=== PATIENT | male | born 1960 | race African-American/Black ===

== ENCOUNTER 2019-03-10 09:38 | Emergency (ER) | payer BC ==
[2019-03-10] MEDS ORDERED: Ondansetron 4 MG/2 ML SDV IVPUSH ONE (09:58)
[2019-03-10] MEDS ORDERED: Sodium Chloride 0.9% 10 ML Syringe FLUSH PRN (09:58)
[2019-03-10] MEDS ORDERED: Sodium Chloride 0.9% 1,000 ML IV SCH (10:00)
--- NOTE | 2019-03-10 10:45 | EDM.PDOC ---
ED HPI GENERAL MEDICAL PROBLEM - General Chief Complaint: General Stated Complaint: [facility] Time Seen by Provider: 03/10/19 09:46 Source of Information: Reports: Patient, EMS History Limitations: Reports: No Limitations - History of Present Illness INITIAL COMMENTS - FREE TEXT/NARRATIVE: The patient presents by [facility] for dizziness. He went to be feeling fine last night. This morning he got up and he was dizzy like the room was spinning and he was off balance. He called EMS for help. He is also nauseated but he did not vomit. He has no fever, chills, cough, congestion, ear pain, tinnitus, hearing loss, chest pain, shortness of breath, abdominal pain, numbness or weakness. This has never happened before. Onset: Gradual Duration: Hour(s): Severity: Moderate Improves with: Reports: Immobilization Worsens with: Reports: Movement Context: Denies: Trauma Associated Symptoms: Reports: Nausea/Vomiting. Denies: Chest Pain, Cough, Fever /Chills, Headaches, Shortness of Breath - Related Data Allergies Allergy/AdvReac Type Severity Reaction Status Date / Time No Known Allergies Allergy Verified 03/10/19 09:43 Home Meds: Home Meds Dapagliflozin/Metformin HCl [Xigduo Xr 5 mg-1,000 mg Tablet] 1 tab PO DAILY [History] Losartan [Cozaar] 25 mg PO DAILY 03/10/19 [History] Meclizine [Antivert] 25 mg PO Q6H PRN #30 tab.chew 03/10/19 [Rx] Rosuvastatin [Crestor] 20 mg PO DAILY 03/10/19 [History] Tamsulosin [Flomax] 1 tab PO DAILY 03/10/19 [History] Past Medical History Cardiovascular History: Reports: High Cholesterol, Hypertension Genitourinary History: Reports: Prostate Disorder Endocrine/Metabolic History: Reports: Diabetes, Type II - Past Surgical History HEENT Surgical History: Reports: Naso-Sinus Surgery Social & Family History - Tobacco Use Smoking Status *Q: Never Smoker - Caffeine Use Caffeine Use: Reports: None - Recreational Drug Use Recreational Drug Use: No ED ROS GENERAL - Review of Systems Review Of Systems: See Below Constitutional: Reports: No Symptoms HEENT: Reports: No Symptoms Respiratory: Reports: No Symptoms Cardiovascular: Reports: No Symptoms Endocrine: Reports: No Symptoms GI/Abdominal: Reports: Nausea. Denies: Abdominal Pain, Vomiting : Reports: No Symptoms Musculoskeletal: Reports: No Symptoms ED EXAM, GENERAL - Physical Exam Exam: See Below Exam Limited By: No Limitations General Appearance: Alert, No Apparent Distress Eye Exam: Right Eye: Nystagmus, Bilateral Eye: EOMI, PERRL Ears: Normal External Exam Nose: Normal Inspection Head: Atraumatic, Normocephalic Neck: Normal Inspection Respiratory/Chest: No Respiratory Distress, Lungs Clear, Normal Breath Sounds Cardiovascular: Regular Rate, Rhythm, No Edema, No Murmur GI/Abdominal: Soft, Non-Tender, No Organomegaly, No Mass Back Exam: Normal Inspection Extremities: Normal Inspection Neurological: Alert, Oriented, No Motor/Sensory Deficits, Other (Normal finger to nose) Course - Vital Signs Last Recorded V/S: Last Vital Signs Temp 98.2 F 03/10/19 09:46 Pulse 67 03/10/19 09:46 Resp 13 03/10/19 09:46 BP 123/83 03/10/19 09:46 Pulse Ox 100 03/10/19 09:46 - Orders/Labs/Meds Orders: Active Orders 24 hr Category Date Time Status Cardiac Monitoring [RC] . DIRECTED Care 03/10/19 09:58 Active Peripheral IV Care [RC] . DIRECTED Care 03/10/19 09:59 Active Sodium Chloride 0.9% [Normal Saline] 1,000 ml Med 03/10/19 10:00 Active IV .BOLUS Sodium Chloride 0.9% [Saline Flush] Med 03/10/19 09:58 Active 10 ml FLUSH ASDIRECTED PRN ED Antiemetic Medication Reflex [OM.PC] Stat Oth 03/10/19 09:58 Ordered Peripheral IV Insertion Adult [OM.PC] Stat Oth 03/10/19 09:58 Ordered Medication Orders Sodium Chloride (Normal Saline) 1,000 mls @ 1,000 mls/hr IV .BOLUS PATTIE Last Admin: 03/10/19 10:09 Dose: 1,000 mls/hr Sodium Chloride (Saline Flush) 10 ml FLUSH ASDIRECTED PRN PRN Reason: Keep Vein Open Last Admin: 03/10/19 10:09 Dose: 10 ml Labs: Laboratory Tests 03/10/19 03/10/19 Range/Units 10:05 10:05 WBC 4.23 (4.23-9.07) K/mm3 RBC 5.34 (4.63-6.08) M/mm3 Hgb 14.8 (13.7-17.5) gm/dl Hct 43.2 (40.1-51.0) % MCV 80.9 (79.0-92.2) fl MCH 27.7 (25.7-32.2) pg MCHC 34.3 (32.2-35.5) g/dl RDW Std Deviation 37.0 (35.1-43.9) fL Plt Count 243 (163-337) K/mm3 MPV 9.0 L (9.4-12.3) fl Neut % (Auto) 60.3 (34.0-67.9) % Lymph % (Auto) 30.0 (21.8-53.1) % Sunflower % (Auto) 8.3 (5.3-12.2) % Eos % (Auto) 0.9 (0.8-7.0) Baso % (Auto) 0.5 (0.1-1.2) % Neut # (Auto) 2.55 (1.78-5.38) K/mm3 Lymph # (Auto) 1.27 L (1.32-3.57) K/mm3 Sunflower # (Auto) 0.35 (0.30-0.82) K/mm3 Eos # (Auto) 0.04 (0.04-0.54) K/mm3 Baso # (Auto) 0.02 (0.01-0.08) K/mm3 Sodium 141 (136-145) mEq/L Potassium 4.0 (3.5-5.1) mEq/L Chloride 106 (98-107) mEq/L Carbon Dioxide 23 (21-32) mEq/L Anion Gap 16.0 H (5-15) BUN 15 (7-18) mg/dL Creatinine 1.2 (0.7-1.3) mg/dL Est Cr Clr Drug Dosing 75.44 mL/min Estimated GFR (MDRD) > 60 (>60) mL/min BUN/Creatinine Ratio 12.5 L (14-18) Glucose 150 H (74-106) mg/dL Calcium 9.7 (8.5-10.1) mg/dL Magnesium 2.0 (1.8-2.4) mg/dl Total Bilirubin 0.9 (0.2-1.0) mg/dL AST 22 (15-37) U/L ALT 40 (16-63) U/L Alkaline Phosphatase 44 L (46-116) U/L Total Protein 7.6 (6.4-8.2) g/dl Albumin 3.9 (3.4-5.0) g/dl Globulin 3.7 gm/dL Albumin/Globulin Ratio 1.1 (1-2) Meds: Medications Generic Name Dose Route Start Last Admin Trade Name Freq PRN Reason Stop Dose Admin Sodium Chloride 1,000 mls @ 1,000 mls/hr 03/10/19 10:00 03/10/19 10:09 Normal Saline IV 1,000 mls/hr .BOLUS PATTIE Administration Sodium Chloride 10 ml 03/10/19 09:58 03/10/19 10:09 Saline Flush FLUSH 10 ml ASDIRECTED PRN Administration Keep Vein Open Discontinued Medications Generic Name Dose Route Start Last Admin Trade Name Freq PRN Reason Stop Dose Admin Meclizine HCl 25 mg 03/10/19 09:59 03/10/19 10:09 Antivert PO 03/10/19 10:00 25 mg ONETIME ONE Administration Ondansetron HCl 4 mg 03/10/19 09:58 03/10/19 10:09 Zofran IVPUSH 03/10/19 09:59 4 mg ONETIME ONE Administration - Re-Assessments/Exams Free Text/Narrative Re-Assessment/Exam: 03/10/19 10:44 I ordered an IV NS, zofran 4mg IV, antivert 25mg PO and labs. 03/10/19 11:21 His CBC and CMP look good. He feels better. He got up to use the restroom and it was better. I feel he has benign positional vertigo. I will get him on some antivert for it. Departure - Departure Time of Disposition: 11:25 Disposition: Home, Self-Care 01 Condition: Good Clinical Impression: Vertigo - Discharge Information *PRESCRIPTION DRUG MONITORING PROGRAM REVIEWED*: No *COPY OF PRESCRIPTION DRUG MONITORING REPORT IN PATIENT LUISA: No Prescriptions: Meclizine [Antivert] 25 mg PO Q6H PRN #30 tab.chew PRN Reason: Dizziness Referrals: PCP,Not In Area [Primary Care Provider] - Jules Plaza PA-C [Physician [employer]] - 1 Week Forms: ED Department Discharge Additional Instructions: Go home and rest. Drink plenty of water. Try to get 8 eight ounce glasses of water. Take the antivert every 6 hours as needed for dizziness. Please return if you are worse. - My Orders Last 24 Hours: My Active Orders 03/10/19 09:58 Cardiac Monitoring [RC] . DIRECTED Sodium Chloride 0.9% [Saline Flush] 10 ml FLUSH ASDIRECTED PRN ED Antiemetic Medication Reflex [OM.PC] Stat Peripheral IV Insertion Adult [OM.PC] Stat 03/10/19 09:59 Peripheral IV Care [RC] . DIRECTED 03/10/19 10:00 Sodium Chloride 0.9% [Normal Saline] 1,000 ml IV .BOLUS - Assessment/Plan Last 24 Hours: My Active Orders 03/10/19 09:58 Cardiac Monitoring [RC] . DIRECTED Sodium Chloride 0.9% [Saline Flush] 10 ml FLUSH ASDIRECTED PRN ED Antiemetic Medication Reflex [OM.PC] Stat Peripheral IV Insertion Adult [OM.PC] Stat 03/10/19 09:59 Peripheral IV Care [RC] . DIRECTED 03/10/19 10:00 Sodium Chloride 0.9% [Normal Saline] 1,000 ml IV .BOLUS
== END 2019-03-10 11:32 | disposition home or self-care (01) ==
LOC: JD.ED 09:38
DX: R42 Dizziness and giddiness (principal); E78.5 Hyperlipidemia, unspecified; I10 Essential (primary) hypertension; E11.9 Type 2 diabetes mellitus without complications; Z79.84 Long term (current) use of oral hypoglycemic drugs; Z79.899 Other long term (current) drug therapy
CPT/HCPCS: 36415; 80053; 83735; 85025; 96361; 96374; 99284; A9270; J2405; J7040

== ENCOUNTER 2019-04-05 09:02 | Emergency (ER) | payer BC ==
[2019-04-05] MEDS ORDERED: Metoclopramide 10 MG/2 ML SDV IVPUSH ONE (09:36)
[2019-04-05] MEDS ORDERED: Ondansetron 4 MG/2 ML SDV IVPUSH ONE (09:38)
[2019-04-05] MEDS ORDERED: methylPREDNISolone Sodium Succinate 125 MG/2 ML SDV IVPUSH ONE (09:39)
[2019-04-05] MEDS ORDERED: Sodium Chloride 0.9% 1,000 ML IV SCH (09:45)
--- NOTE | 2019-04-05 10:38 | EDM.PDOC ---
ED HPI GENERAL MEDICAL PROBLEM - General Chief Complaint: Neurological Problem Stated Complaint: VERTIGO NOT BETTER Time Seen by Provider: 04/05/19 09:20 Source of Information: Reports: Patient History Limitations: Reports: No Limitations - History of Present Illness INITIAL COMMENTS - FREE TEXT/NARRATIVE: Patient is a 58-year-old male who presents with complaints of vertigo-like symptoms. He states he woke this morning with the sensation of the room spinning that is worse with position changes. He has similar episode on 10 March and was seen in the ER at that time. He states that he took the meclizine for couple days following that visit but he has been okay up until today. He denies any other symptoms of ear pain, speech difficulties, or paresthesias. - Related Data Allergies Allergy/AdvReac Type Severity Reaction Status Date / Time No Known Allergies Allergy Verified 04/05/19 09:15 Home Meds: Home Meds Dapagliflozin/Metformin HCl [Xigduo Xr 5 mg-1,000 mg Tablet] 1 tab PO DAILY [History] Losartan [Cozaar] 25 mg PO DAILY 03/10/19 [History] Meclizine [Antivert] 25 mg PO Q6H PRN #30 tab.chew 03/10/19 [Rx] Rosuvastatin [Crestor] 20 mg PO DAILY 03/10/19 [History] Tamsulosin [Flomax] 1 tab PO DAILY 03/10/19 [History] Past Medical History Cardiovascular History: Reports: High Cholesterol, Hypertension Genitourinary History: Reports: Prostate Disorder Endocrine/Metabolic History: Reports: Diabetes, Type II - Past Surgical History HEENT Surgical History: Reports: Naso-Sinus Surgery Social & Family History - Tobacco Use Smoking Status *Q: Never Smoker - Caffeine Use Caffeine Use: Reports: None - Recreational Drug Use Recreational Drug Use: No ED ROS GENERAL - Review of Systems Review Of Systems: See Below Constitutional: Reports: No Symptoms HEENT: Reports: Vertigo. Denies: Ear Pain, Hearing Loss Respiratory: Reports: No Symptoms Cardiovascular: Reports: No Symptoms Endocrine: Reports: No Symptoms GI/Abdominal: Reports: Nausea, Vomiting. Denies: Abdominal Pain : Reports: No Symptoms Musculoskeletal: Reports: No Symptoms Skin: Reports: No Symptoms Neurological: Reports: No Symptoms. Denies: Headache, Paresthesia, Syncope, Change in Speech Psychiatric: Reports: No Symptoms Hematologic/Lymphatic: Reports: No Symptoms Immunologic: Reports: No Symptoms ED EXAM, NEURO - Physical Exam Exam: See Below Exam Limited By: No Limitations General Appearance: Alert, WD/WN, No Apparent Distress Eye Exam: Bilateral Eye: Nystagmus (with bilateral head turning) Ears: Normal External Exam, Normal Canal, Hearing Grossly Normal, Normal TMs Head Exam: Atraumatic, Normocephalic Respiratory/Chest: No Respiratory Distress, Lungs Clear, Normal Breath Sounds, No Accessory Muscle Use, Chest Non-Tender Cardiovascular: Normal Peripheral Pulses, Regular Rate, Rhythm, No Edema, No Murmur GI/Abdominal: Normal Bowel Sounds, Soft, Non-Tender, No Distention Neurological: Alert, Normal Mood/Affect, Oriented x 3, Other (positive subhash manauver bilaterally ) Psychiatric: Normal Affect, Normal Mood Skin Exam: Warm, Dry, Intact, Normal Color, No Rash Course - Vital Signs Last Recorded V/S: Last Vital Signs Temp 98.1 F 04/05/19 09:26 Pulse 87 04/05/19 09:26 Resp 14 04/05/19 09:26 BP 134/82 04/05/19 09:26 Pulse Ox 100 04/05/19 09:26 - Orders/Labs/Meds Orders: Active Orders 24 hr Category Date Time Status Sodium Chloride 0.9% [Normal Saline] 1,000 ml Med 04/05/19 09:45 Active IV ASDIRECTED Medication Orders Sodium Chloride (Normal Saline) 1,000 mls @ 999 mls/hr IV ASDIRECTED PATTIE Last Admin: 04/05/19 09:59 Dose: 999 mls/hr Meds: Medications Generic Name Dose Route Start Last Admin Trade Name Freq PRN Reason Stop Dose Admin Sodium Chloride 1,000 mls @ 999 mls/hr 04/05/19 09:45 04/05/19 09:59 Normal Saline IV 999 mls/hr ASDIRECTED PATTIE Administration Discontinued Medications Generic Name Dose Route Start Last Admin Trade Name Freq PRN Reason Stop Dose Admin Diazepam 2 mg 04/05/19 09:39 04/05/19 09:59 Valium IVPUSH 04/05/19 09:40 2 mg ONETIME ONE Administration Methylprednisolone Sodium Succinate 125 mg 04/05/19 09:39 04/05/19 09:59 Solu-Medrol IVPUSH 04/05/19 09:40 125 mg ONETIME ONE Administration Metoclopramide HCl 7.5 mg 04/05/19 09:36 Reglan IVPUSH 04/05/19 09:37 ONETIME ONE Ondansetron HCl 4 mg 04/05/19 09:38 04/05/19 09:59 Zofran IVPUSH 04/05/19 09:39 4 mg ONETIME ONE Administration - Re-Assessments/Exams Free Text/Narrative Re-Assessment/Exam: Patient is a 58-year-old male who presents with complaints of feeling like the room was spinning and vomiting that started when he awoke this morning. He's did have a similar episode approximately one month ago and was treated in the ER. He took meclizine for few days following that however he has not required it up until today. He did take 2 doses of meclizine prior to coming to the ER with his last dose being at 8 AM. On exam his symptoms are significantly worse when lying flat and turning his head to the right or left. Nystagmus is present with this maneuver as well. He states that the symptoms are better when he sitting up, but that turning his head while sitting up also exacerbates his symptoms. I will treat with 1 L of and S, Zofran 4 mg IV, and Solu-Medrol 125 mg IV. 04/05/19 10:35 On reassessment, patient is feeling significantly better after the medications. Discussed options of public information specialist versus physical therapy for treatment of ongoing symptoms. 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 We did call to schedule an appointment with an public information specialist for treatment, and Dr. Chun can see him at 11 AM today. Patient is willing to go directly from the ER to [facility] to have an assessment and/or treatment. Discharge instructions as noted. Departure - Departure Time of Disposition: 10:36 Disposition: Home, Self-Care 01 Condition: Fair Clinical Impression: Vertigo - Discharge Information *PRESCRIPTION DRUG MONITORING PROGRAM REVIEWED*: No *COPY OF PRESCRIPTION DRUG MONITORING REPORT IN PATIENT LUISA: No Instructions: Benign Positional Vertigo Referrals: PCP,None [Primary Care Provider] - Forms: ED Department Discharge Additional Instructions: You were seen in the emergency Department today for vertigo-like symptoms and vomiting. An appointment has been made for you with Dr. Chun at 11 AM today. Continue to use [id number] meclizine as needed. Symptoms should worsen or you develop any new concerning symptoms, please not hesitate to return to the emergency department. Sepsis Event Note - Evaluation Sepsis Screening Result: No Definite Risk - Focused Exam Vital Signs: Vital Signs Temp Pulse Resp BP Pulse Ox 04/05/19 09:26 98.1 F 87 14 134/82 100 Date Exam was Performed: 04/05/19 Time Exam was Performed: 10:38 - My Orders Last 24 Hours: My Active Orders 04/05/19 09:45 Sodium Chloride 0.9% [Normal Saline] 1,000 ml IV ASDIRECTED - Assessment/Plan Last 24 Hours: My Active Orders 04/05/19 09:45 Sodium Chloride 0.9% [Normal Saline] 1,000 ml IV ASDIRECTED
== END 2019-04-05 10:50 | disposition home or self-care (01) ==
LOC: JD.ED 09:02
DX: R42 Dizziness and giddiness (principal); R11.10 Vomiting, unspecified; I10 Essential (primary) hypertension; E78.00 Pure hypercholesterolemia, unspecified; E11.9 Type 2 diabetes mellitus without complications; Z79.899 Other long term (current) drug therapy
CPT/HCPCS: 96361; 96374; 96375; 99283; J2405; J2930; J3360; J7030